=== PATIENT | male | born 1955 | race Caucasian/White ===

== ENCOUNTER 2018-09-27 05:48 | Day surgery (SDC) | payer OTHER ==
[~2018-09-27] VITALS: Ht 177.8 cm; Wt 53.1 kg
[~2018-09-27 05:48] MED LIST: ALBUTEROL2.5 MG/31 INH; CHANTIX1 MG PO; CIPRODEX OTIC7.5 ML OTIC; DALIRESP500 MCG PO; FLOMAX0.4 MG PO; FLOVENT HFA12 GM INH; OMEPRAZOLE 20 M20 M1 PO; QUETIAPINE FUM100 MG PO; RESTORIL30 MG PO; STIOLTO RESPIMAT4 GM INH; VENTOLIN HFA 1818 GM INH
[2018-09-27 06:37] VITALS: BP 119/64
--- NOTE | 2018-10-01 06:16 | O ---
[facility] [place] [address] OPERATIVE REPORT Name: SLAVADANNY A Room #: DEP [facility]..#: [id number] Admission: 09/27/18 ������������������ Attend Phys: Mj Velazco MD Discharge: 09/27/18 ������������������ Date of : 51 Report #: [id number] THIS REPORT FOR: //name// CC: Sammi Bianchi DATE OF SERVICE: 09/27/2018 WIRING MECHANIC: None. PREOPERATIVE DIAGNOSIS: Bilateral lower lid entropion. POSTOPERATIVE DIAGNOSIS: Bilateral lower lid entropion. OPERATION PERFORMED: Bilateral lower lid entropion repair. ANESTHESIA: Local with IV sedation. COMPLICATIONS: None. INDICATIONS FOR PROCEDURE: This patient has bilateral lower lid entropion with chronic irritation and discharge. The current procedures are being undertaken in order to improve the patient's level of comfort and visual function. Informed consent was obtained to include but not limited to the loss of vision, bleeding, infection, scarring, failure to improve the problem and need for further surgery. DESCRIPTION OF OPERATION: The patient was taken to the operating room, where 2% Xylocaine with epinephrine mixed with equal parts of 0.75% Marcaine with Wydase was administered transcutaneously and transconjunctivally to each lower lid and lateral canthal area. The patient was then prepped and draped in the usual sterile fashion. A Sue clamp was used to clamp the left lateral canthus, following which a sharp canthotomy and cantholysis were performed. Hemostasis was achieved with a monopolar cautery, as it was throughout the case. A tarsal strip was prepared laterally, removing the lash bearing portion of the redundant lid margin and the redundant tarsal plate. A transconjunctival dissection was then undertaken just inferior to the lower border of the tarsal plate. The lower lid retractors were disinserted from the inferior border of the tarsal plate. The lower lid retractors were then advanced and reattached to the anterior surface of the tarsal plate with mattress 5-0 chromic sutures passed transconjunctivally and secured in the infraciliary margin. The tarsal strip was then secured laterally with 2 interrupted 5-0 Prolene sutures. The subcutaneous structures and the skin were then closed with multiple interrupted [address] [address] OPERATIVE REPORT Name: DANNY PEDERSEN Aleta Room #: DEP [facility]#: [id number] Admission: 09/27/18 ������������������ Attend Phys: Mj Velazco MD Discharge: 09/27/18 ������������������ Date of : 51 Report #: [id number] 6-0 plain gut sutures so the lateral canthal angle was sharply reformed. The wounds were then cleaned and dressed with ophthalmic antibiotic ointment. The patient was then transported to the recovery area, having tolerated the procedure well with no anesthetic or operative complications being noted. ��������������������������������������������� <ELECTRONICALLY SIGNED> ���������������������������������������� By: Mj Velazco MD ��������������������������������������������� 10/01/18 0616 [id number] Mj Velazco MD /karis
== END 2018-09-27 08:26 | disposition home or self-care (01) ==
LOC: OR → TBA 05:48 → OR 05:48 → TBA 05:49 → OR 08:26
DX: H02.002 Unspecified entropion of right lower eyelid (principal); H02.005 Unspecified entropion of left lower eyelid; J43.9 Emphysema, unspecified; K21.9 Gastro-esophageal reflux disease without esophagitis; Z87.891 Personal history of nicotine dependence; Z79.899 Other long term (current) drug therapy
CPT/HCPCS: 50010; 50101; 50386; 50398; 51636; 56527; 56531; 62110; 62850; 70005